=== PATIENT | male | born 1960 | race Caucasian/White ===

== ENCOUNTER 2022-09-20 11:34 | Emergency (ER) | payer BC ==
[~2022-09-20] VITALS: Ht 165.1 cm; Wt 93.0 kg
[2022-09-20] MEDS ORDERED: METPRE4DP PO (12:44)
[2022-09-20] MEDS ORDERED: Robaxin750 MG PO (12:44)
[2022-09-20] MEDS ORDERED: Norco 5-325 Ta1 EACH PO (12:44)
== END 2022-09-20 12:42 | disposition home or self-care (01) ==
LOC: ER 11:34
DX: M54.50 Low back pain, unspecified (principal); G89.29 Other chronic pain; Z79.899 Other long term (current) drug therapy
CPT/HCPCS: 96372; 99282-25; A9270; J1885